=== PATIENT | female | born 1960 | race American Indian/Alaskan Native ===

== ENCOUNTER 2020-04-03 22:18 | Emergency (ER) | payer SELFPAY ==
[2020-04-04 01:16] LABS: Hematocrit 45.7 % (30.3-42.9); Hemoglobin 16.1 gm/dl (10.1-14.3); Mean Corpuscular HGB Conc 35 % (30-34); Mean Corpuscular Volume 86 fl (79-97); Platelet Count 290 K/mm3 (140-440); Red Blood Count 5.32 M/mm3 (3.65-5.03); Red Cell Distribution Width 13.4 % (13.2-15.2)
[2020-04-04 01:27] LABS: Alanine Aminotransferase 39 units/L (7-56); Albumin 5.1 g/dL (3.9-5); BUN/Creatinine Ratio 18; Blood Urea Nitrogen 18 mg/dL (7-17); Calcium 10.2 mg/dL (8.4-10.2); Hemolysis Index 7
[2020-04-04 01:45] LABS: Bacteria,Urine 1+ /HPF (Negative); Bilirubin,Urine NEG (Negative); Blood,Urine NEG (Negative); Color,Urine Yellow (Yellow); Mucus,Urine 3+ /HPF; Urobilinogen,Urine < 2.0 mg/dL (<2.0)
[2020-04-04] MEDS ORDERED: SODIUM CHLORIDE 0.9% 1000 ML 1,000 ML IV ONE (02:45)
[2020-04-04] MEDS ORDERED: MORPHINE 4 MG/1 ML INJ IV ONE (02:46)
[2020-04-04] MEDS ORDERED: ONDANSETRON 4 MG/2 ML INJ IV ONE (02:46)
--- NOTE | 2020-04-04 02:50 | Emergency Department Report ---
ED Abdominal Pain HPI - General Chief Complaint: Abdominal Pain Stated Complaint: GERD PUI?: No Time Seen by Provider: 04/04/20 02:27 Source: patient Mode of arrival: Ambulatory Limitations: No Limitations - History of Present Illness Initial Comments: This is a 59-year-old female with history of GERD, hypertension, hyperlipidemia, hypokalemia who presents with central abdominal pain for the past 3 days since Sunday. Her abdomen feels sore and tender. She feels her GERD was exacerbated by eating garlic. She has had vomiting since that time. Central 8 out of 10 sore tender pain. She denies fever. She recently moved to [place]. She does not have a PCP. She requests IV Dilaudid for her pain relief. She is also concerned that her potassium is low. MD Complaint: abdominal pain -: Gradual, days(s) (3) Location: periumbilical Radiation: none Severity: moderate, severe Severity scale (0 -10): 8 Quality: other ("Sore, tender ") Consistency: constant Improves With: nothing Worsens With: nothing Associated Symptoms: nausea, vomiting - Related Data Previous Rx's Medication Instructions Recorded Last Taken Type Famotidine [Acid Controller] 20 mg PO BID 30 Days #60 tablet 04/04/20 Unknown Rx Potassium Chloride [K-Dur] 10 meq PO QDAY 30 Days #30 tablet 04/04/20 Unknown Rx Promethazine [Phenergan] 25 mg PO Q6HR PRN #10 tab 04/04/20 Unknown Rx Allergies Allergy/AdvReac Type Severity Reaction Status Date / Time acetaminophen [From Vicodin] Allergy Hives Verified 04/04/20 01:16 hydrocodone [From Vicodin] Allergy Hives Verified 04/04/20 01:16 Tetracyclines Allergy Itching Verified 04/04/20 00:15 ED Review of Systems ROS: Stated complaint: GERD Other details as noted in HPI Comment: All other systems reviewed and negative Constitutional: denies: fever, malaise Cardiovascular: denies: chest pain Gastrointestinal: abdominal pain, nausea, vomiting. denies: diarrhea ED Past Medical Hx - Past Medical History Previous Medical History?: Yes Hx Hypertension: Yes Hx GERD: Yes Additional medical history: High Cholesterol. Hyperkalemia - Surgical History Past Surgical History?: Yes Additional Surgical History: Hysterectomy - Social History Smoking Status: Never Smoker Substance Use Type: None - Medications Home Medications: Home Medications Medication Instructions Recorded Confirmed Last Taken Type Famotidine [Acid Controller] 20 mg PO BID 30 Days #60 tablet 04/04/20 Unknown Rx Potassium Chloride [K-Dur] 10 meq PO QDAY 30 Days #30 tablet 04/04/20 Unknown Rx Promethazine [Phenergan] 25 mg PO Q6HR PRN #10 tab 04/04/20 Unknown Rx ED Physical Exam - General Limitations: No Limitations General appearance: alert, in no apparent distress - Head Head exam: Present: atraumatic, normocephalic - Eye Eye exam: Present: normal appearance - ENT ENT exam: Present: mucous membranes moist - Neck Neck exam: Present: normal inspection, full ROM - Respiratory Respiratory exam: Present: normal lung sounds bilaterally. Absent: respiratory distress, wheezes, rales, rhonchi - Cardiovascular Cardiovascular Exam: Present: regular rate, normal rhythm, normal heart sounds. Absent: systolic murmur, diastolic murmur, rubs, gallop - GI/Abdominal GI/Abdominal exam: Present: soft, normal bowel sounds. Absent: distended, tenderness, guarding, rebound - Extremities Exam Extremities exam: Present: normal inspection - Neurological Exam Neurological exam: Present: alert, oriented X3 - Psychiatric Psychiatric exam: Present: normal affect, normal mood - Skin Skin exam: Present: warm, dry, intact, normal color. Absent: rash ED Course Vital Signs 04/04/20 04/04/20 04/04/20 00:05 00:11 02:15 Temperature 98.0 F 99.0 F 98.5 F Pulse Rate 91 H 80 90 Respiratory 18 18 14 Rate Blood Pressure 152/100 126/75 Blood Pressure 144/92 [Left] O2 Sat by Pulse 97 98 100 Oximetry 04/04/20 04/04/20 04/04/20 02:45 03:08 03:31 Temperature Pulse Rate 80 78 Respiratory 16 18 14 Rate Blood Pressure 146/88 150/89 Blood Pressure [Left] O2 Sat by Pulse 98 95 Oximetry 04/04/20 04/04/20 04:01 04:15 Temperature Pulse Rate 80 86 Respiratory 15 16 Rate Blood Pressure 123/75 118/76 Blood Pressure [Left] O2 Sat by Pulse 96 97 Oximetry ED Medical Decision Making - Lab Data Result diagrams: 04/04/20 00:28 04/04/20 00:28 - Radiology Data Radiology results: report reviewed CT abdomen pelvis: No evidence of acute inflammatory obstructive process within the abdomen or pelvis, peripherally enhancing lesion within the left hepatic lobe possible hemangioma - Medical Decision Making Ms. Bello presents with central abdominal pain. Considering the severity of pain and leukocytosis, CT abdomen pelvis obtained. CT abdomen pelvis did not reveal acute inflammatory or obstructive process. Incidental finding of hemangioma seen. Patient prescribed promethazine and potassium chloride. Patient also prescribed famotidine for GERD. Work-up notable for elevated hemoglobin hematocrit reflective of volume contraction in the setting of vomiting. Patient does have mild hypokalemia. Critical care attestation.: If time is entered above; I have spent that time in minutes in the direct care of this critically ill patient, excluding procedure time. ED Disposition Clinical Impression: Abdominal pain, GERD (gastroesophageal reflux disease), Hypokalemia Disposition: - TO HOME OR SELFCARE Is pt being admited?: No Does the pt Need Aspirin: No Condition: Stable Instructions: Abdominal Pain (ED) Prescriptions: Famotidine [Acid Controller] 20 mg PO BID 30 Days #60 tablet Potassium Chloride [K-Dur] 10 meq PO QDAY 30 Days #30 tablet Promethazine [Phenergan] 25 mg PO Q6HR PRN #10 tab PRN Reason: Nausea Referrals: INDIA PAYTON MD [Staff Physician] - 3-5 Days Forms: Work/School Release Form(ED)
--- NOTE | 2020-04-04 03:42 | Cat Scan Report ---
CT ABDOMEN AND PELVIS WITH IV CONTRAST INDICATION: Generalized abdominal pain TECHNIQUE: Following the administration of intravenous contrast, multiple axial CT images of the abdo men and pelvis were acquired. Sagittal and coronal reformats were obtained. All CT performed at this facility utilize dose reduction techniques including automated exposure control, iterative reconstru ction and weight based dosing when appropriate to reduce patient radiation dose to as low as reasonab ly achievable. COMPARISON: None FINDINGS: Limited imaging of the bilateral lung bases demonstrates no evidence of acute abnormality. Abdomen: There is a low-density peripherally enhancing mass within the left lobe of the liver measuri ng 4.4 x 3.9 cm. The gallbladder, spleen, pancreas, bilateral adrenal glands and bilateral kidneys sh ow no evidence of acute abnormality. The abdominal aorta is normal in course and caliber. There is no evidence of bowel obstruction, free fluid or pneumatosis. The appendix is visualized and appears nor mal. Pelvis: No free fluid is seen within the pelvis. The urinary bladder appears normal. Bones and Soft Tissues: Evaluation of bony structures demonstrates no evidence of destructive bony le valent[place]. Degenerative changes of the thoracolumbar spine are noted. Evaluation of soft tissue structures demonstrates no evidence of acute soft tissue abnormality. IMPRESSION: 1. No evidence of acute inflammatory or obstructive process within the abdomen or pelvis. 2. Peripherally enhancing lesion within the left hepatic lobe. This may represent a hemangioma, altho ugh this would not be definitive on today's single phase contrasted evaluation. A multiphase CT of th e abdomen could be performed to better evaluate. Signer Name: Zhane Hernández MD Signed: 04/04/2020 3:37 AM Workstation Name: [id number]
[2020-04-04 04:24] VITALS: BP 118/76
[2020-04-04 05:27] LABS: Band Neutrophils # (Manual) 0.6 K/mm3; Basophils % (Manual) 0 % (0.0-1.8); Eosinophils % (Manual) 0 % (0.0-4.3); Total Cells Counted 100
[2020-04-04 05:28] LABS: Anisocytosis 1+; Platelet Estimate Consistent w Auto
== END 2020-04-04 04:47 | disposition home or self-care (01) ==
LOC: ED 22:18
DX: K21.9 Gastro-esophageal reflux disease without esophagitis (principal); E87.6 Hypokalemia; I10 Essential (primary) hypertension; Z79.899 Other long term (current) drug therapy; Z90.710 Acquired absence of both cervix and uterus; Z88.8 Allergy status to other drugs, medicaments and biological substances
CPT/HCPCS: 36415; 74177; 80053; 81001; 83690; 85007; 85025; 87086; 96361; 96374; 96375; 99284; J2270; J2405; J7030; Q9967